=== PATIENT | male | born 1985 | race Caucasian/White ===

== ENCOUNTER → 2017-01-23 | Day surgery (SDC) | payer OTHER ==
[~2017-01-23] MED LIST: IBUPROFEN200 M1 PO
--- NOTE | ~2017-01-23 | OR ---
Unit #: [id number] #: [id number] Patient: STEVIE DUMONT [id number] [address] [place], [place] [address] [id number] O MR#: [id number] NAME: STEVIE DUMONT ROOM: Date of Procedure: 01/23/2017 Admission Date: 01/23/2017 Surgeon: Rosalind Chapa M.D. : 1985 Attending Physician: Rosalind Chapa M.D. 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 PROCEDURES PERFORMED Bilateral forced ductions and left medial rectus resection, 6 mm. ESTIMATED BLOOD LOSS Less than 1 mL. ANESTHESIA General. COMPLICATIONS None. INDICATIONS FOR PROCEDURE This is a 31-year-old male, who is status post strabismus repair at the age of 13, for which he believe was in the right eye for drifting out of the eyes. He has over the past few years noticed intermittent double vision, as well as intermittent drifting of his left eye. Decision was made to proceed with strabismus repair under anesthesia, with a goal of operating on the left medial rectus recession muscle. DESCRIPTION OF PROCEDURE After informed consent was obtained by the patient after discussing the risk, benefits, and alternatives of the surgery including, but not limited to, bleeding, infection, loss of vision, diplopia, need for glasses, future reaction, retinal detachment, glaucoma, and need for further surgery, and need for prism in glasses, the patient agreed to proceed with surgery. He was then brought back to the operating suite and placed in the supine position. Anesthesia was maintained under general. Both eyes were prepped and draped in usual fashion for ocular surgery after instilling one drop of phenylephrine 2.5% into each eye. A lid speculum was placed to keep the lids apart in the right eye. Forced ductions were performed and were found to be negative. The conjunctiva was gently made several different areas and there was no apparent scar tissue. The lid speculum was removed. The lashes of the left eye was secured with a Tegaderm. The lid speculum was placed to keep the lids apart. Forced ductions were performed and were found to be negative. Again, the conjunctiva both inferotemporal and inferonasal were gently lifted with Drake forceps and there was no adherence. The episcopalian area of the left eye had yellowish sheet to it that could be consistent with subtenon fat, Unit #: [id number] #: [id number] Patient: STEVIE DUMONT so decision was made to stay with the original plan of resecting the left medial rectus muscle 6 mm. An inferonasal fornix incision was made horizontally through to the conjunctiva and vertically to the Tenon capsule. The medial rectus muscle was engaged using Marshall hook. This was followed by series of Green hooks. The conjunctival Tenon layer was reflected over the toe of the Green hook. A small snip was made through the intermuscular septum. Two Anton hooks were placed through this base. A superior pole test was performed confirming identification of the superior insertion of the medial rectus muscle. The anterior septal as well as the posterior septal attachments were bluntly dissected off. A second Green hook was placed under the muscle and the muscle was placed under stretch. A 6-0 Vicryl suture with an S29 needle on each end was passed through as a central bite through the tendinous portion of the muscle 6 mm from the insertion site and was tied down square knot. Each needle was then passed partial thickness followed by a locking bite on each end. A hemostat was placed over this part of the muscle. The muscle was disengaged from the globe using the Aebli scissors. The overhanging muscle was resected and sent to Pathology. The remaining muscle on the hemostat was cauterized. The hemostat was released and there was no bleeding. The muscle was inspected and found to be intact with the sutures. Each needle was passed through the sclerae twice at the insertion site in an anchoring technique. The muscle was brought all the way up and tied down. [place] were cut off and the overlying conjunctiva was closed with one 6-0 plain gut stitch. The eye was addressed with a few drops of 5% Betadine followed by TobraDex ointment. The eye was covered with a patch and the patient was extubated and taken to the recovery room having tolerated the procedure well. Dictated by... Celso Brandon/wong TD: 01/23/2017 14:27 JOB #: [id number] OPERATIVE REPORT X X PROCEDURE OPERATIVE NOTE
== END | disposition home or self-care (01) ==
LOC: CSUR 09:34
DX: H50.34 Intermittent alternating exotropia (principal); H53.2 Diplopia; Z87.891 Personal history of nicotine dependence
CPT/HCPCS: 88302; J0131; J1100; J1885; J2250; J2405; J3010